=== PATIENT | male | born 2000 | race Caucasian/White ===

== ENCOUNTER 2023-10-04 16:20 | Outpatient (REF) | payer MEDICAID, SELFPAY ==
[2023-10-04 21:21] LABS: Magnesium 2.2 mg/dL (1.8-2.4); TSH (W/Ref FT4) 3.83 uIU/mL (0.36-3.74); Vitamin D 25 Total 27.6 ng/mL (30-100)
[2023-10-04 21:38] LABS: FREE T4 1.02 ng/dL (0.76-1.46)
== END 2023-10-04 16:21 | disposition home or self-care (01) ==
LOC: NCHCN 16:20
PROVIDERS: PCP Pediatrics; Visit Provider Family Medicine
DX: E03.9 Hypothyroidism, unspecified (principal); R53.83 Other fatigue; E55.9 Vitamin D deficiency, unspecified
CPT/HCPCS: 82306; 83735; 84439; 84443

== ENCOUNTER 2024-08-15 19:15 | Outpatient (REF) | payer MEDICAID, SELFPAY ==
[2024-08-15 21:44] LABS: TSH (W/Ref FT4) 4.24 uIU/mL (0.36-3.74)
[2024-08-15 22:02] LABS: FREE T4 0.77 ng/dL (0.76-1.46)
[2024-08-17 12:02] LABS: Chlamydia Result Positive (Negative); GC Result Negative (Negative)
== END 2024-08-15 19:16 | disposition home or self-care (01) ==
LOC: NCHCN 19:15
PROVIDERS: PCP Pediatrics; Visit Provider Family Medicine
DX: E02 Subclinical iodine-deficiency hypothyroidism (principal); Z11.3 Encounter for screening for infections with a predominantly sexual mode of transmission
CPT/HCPCS: 87491; 87591; 84439; 84443